=== PATIENT | female | born 1940 | race African-American/Black ===

== ENCOUNTER 2019-01-05 17:53 | Inpatient (IN) ==
[2019-01-05] MEDS ORDERED: SODIUM CHLORIDE 0.9% 500 ML IV STA (18:26)
[2019-01-05] MEDS ORDERED: PANTOPRAZOLE 40 MG VIAL IV STA (18:26)
[2019-01-05] MEDS ORDERED: ONDANSETRON 4 MG/2 ML VIAL IV STA (18:26)
[2019-01-05 18:49] LABS: Basophils # 0.1 10*3/uL (0.0-0.2); Basophils % 0.6 % (0.0-0.8); Hematocrit 39.1 VOL% (35.7-47.0); Immature Granulocytes % 0.6 %; Immature Granulocytes Absolute 0.08 #; Lymphocytes # 0.4 10*3/uL (1.4-4.0); Lymphocytes % 3.1 % (21.3-54.2); Mean Corpuscular HGB Conc 33.2 GM/DL (32-36); Mean Corpuscular Volume 84.3 FL (87-102); Mean Platelet Volume 10.6 FL (9.6-12.0); Neutrophils % 83.7 % (38.7-73.9); Platelet Count 281 T/CUMM (130-400); Red Blood Count 4.64 MC/CUMM (3.8-5.5); Red Cell Distribution Width 14.4 % (9.3-17.3); White Blood Count 13.8 T/CUMM (4-12)
[2019-01-05 19:08] LABS: Band Neutrophils 7 % (0-10); Lymphocytes 2 % (20-55); Segmented Neutrophils 80 % (50-85); Total Cells Counted 100
[2019-01-05 19:09] LABS: Apearance,Urine CLEAR (Clear); Bilirubin,Urine Negative (Negative); Blood, Urine Negative (Negative); Glucose,Urine (UA) >=500 mg/dL (Negative); Granular Casts,Urine 1 /LPF (0-1); Hyaline Casts,Urine 6 /LPF (0-3); Ketones,Urine 5 mg/dL (Negative); Mucus,Urine Occasional /LPF (Occasional); Nitrite,Urine Negative (Negative); Protein,Urine >=500 MG/DL; RBC,Urine 3 /HPF (0-4); Squamous Epithelial Cell,Urine Occasional /HPF (0-10); Urine Color Yellow (Yellow); Urine Specific Gravity 1.024 (1.001-1.035); Urine Urobilinogen < 2.0 EU/DL (0.2-1.0); WBC,Urine 1 /HPF (0-6)
[2019-01-05 19:09] LABS: Hypochromasia Slight; Platelet Estimate Adequate; Polychromasia Slight
[2019-01-05 19:11] LABS: Alanine Aminotransferase 19 U/L (13-56); Albumin 3.2 G/DL (3.4-5.0); Alkaline Phosphatase 86 U/L (45-117); Amylase 74 U/L (25-115); Aspartate Amino Transferase 49 U/L (0-37); Blood Urea Nitrogen 28 MG/DL (7-18); Calcium 8.8 MG/DL (8.5-10.1); Estimated Glom Filtration Rate 39 ML/MIN; Glucose 267 MG/DL (74-106); Osmolality,Calculated 278.5 MOS/KG (273-304); Total Protein 8.6 G/DL (6.4-8.3)
[2019-01-05] MEDS ORDERED: SODIUM CHLORIDE 0.9% 1,000 ML IV STA (19:32)
[2019-01-05] MEDS ORDERED: PROMETHAZINE 25 MG/1 ML VIAL IM STA (20:47)
[2019-01-05] MEDS ORDERED: LORazepam 2 MG/1 ML VIAL IV ONE (20:53)
[2019-01-05 20:54] LABS: INR 1.2; PT Patient Result 12.7 SECS (9.6-12.2); Partial Thromboplastin Time < 21.0 SECS (20.8-36.0)
[2019-01-05] MEDS ORDERED: PIPERACILLIN/TAZOBACTAM 3,375 MG in SODIUM CHLORIDE 0.9% 100 ML IV SCH (21:00)
[2019-01-05] MEDS ORDERED: risperiDONE 1 MG TABLET PO SCH (21:57)
[2019-01-05] MEDS ORDERED: ONDANSETRON 4 MG TABLET PO PRN ×2 (21:57→23:22)
[2019-01-05] MEDS ORDERED: metFORMIN 500 MG TABLET PO SCH (21:57)
[2019-01-05] MEDS ORDERED: SODIUM CHLORIDE 0.9% 1,000 ML IV SCH (21:57)
[2019-01-05] MEDS ORDERED: ONDANSETRON 4 MG/2 ML VIAL IV PRN ×2 (21:57→23:22)
[2019-01-05] MEDS ORDERED: ROSUVASTATIN 10 MG TABLET PO SCH (21:57)
[2019-01-05] MEDS ORDERED: INSULIN GLARGINE 100 UNIT/ML SUBCUT SCH (21:57)
[2019-01-05] MEDS ORDERED: ACETAMINOPHEN 325 MG TABLET PO PRN ×2 (21:57→23:22)
[2019-01-05] MEDS ORDERED: MORPHINE 4 MG/1 ML VIAL IV PRN (21:57)
[2019-01-05] MEDS ORDERED: MELATONIN 3 MG TABLET PO SCH (21:57)
[2019-01-05] MEDS: SODIUM CHLORIDE 0.9% 1,000 ML IV SCH (22:40)
[2019-01-05] MEDS: INSULIN LISPRO 100 UNIT/ML SUBCUT SCH (23:55)
[2019-01-06] MEDS ORDERED: LACTATED RINGERS 1,000 ML IV ONE (00:09)
[2019-01-06 03:29] LABS: Basophils # 0.1 10*3/uL (0.0-0.2); Basophils % 0.6 % (0.0-0.8); Eosinophils # 0.1 10*3/uL (0.0-0.87); Eosinophils % 0.4 % (0.00-10.9); Hemoglobin 11.9 GM/DL (12.0-16.0); Immature Granulocytes % 0.4 %; Immature Granulocytes Absolute 0.05 #; Lymphocytes # 0.8 10*3/uL (1.4-4.0); Lymphocytes % 6.4 % (21.3-54.2); Mean Corpuscular HGB Conc 33.1 GM/DL (32-36); Mean Corpuscular Volume 83.5 FL (87-102); Mean Platelet Volume 10.5 FL (9.6-12.0); Monocytes % 13.2 % (1.7-12.7); Platelet Count 273 T/CUMM (130-400); Red Blood Count 4.31 MC/CUMM (3.8-5.5); Red Cell Distribution Width 14.2 % (9.3-17.3); White Blood Count 11.8 T/CUMM (4-12)
[2019-01-06 03:39] LABS: Albumin 2.8 G/DL (3.4-5.0); Bilirubin,Total 0.4 MG/DL (0.2-1.0); Calcium 8.7 MG/DL (8.5-10.1); Osmolality,Calculated 290.3 MOS/KG (273-304); Total Protein 7.4 G/DL (6.4-8.3)
[2019-01-06] MEDS: PIPERACILLIN/TAZOBACTAM 3,375 MG in SODIUM CHLORIDE 0.9% 100 ML IV SCH ×3 (05:05→21:22)
[2019-01-06 06:11] LABS: Band Neutrophils 55 % (0-10); Lymphocytes 3 % (20-55); Segmented Neutrophils 25 % (50-85); Total Cells Counted 100
[2019-01-06 06:12] LABS: Platelet Estimate Normal
[2019-01-06 06:14] LABS: Anisocytosis 1+; Macrocytosis Slight; Poikilocytosis Slight
[2019-01-06 06:17] LABS: Eosinophils 1 % (0-10); Metamyelocytes 1 %
[2019-01-06] MEDS: INSULIN LISPRO 100 UNIT/ML SUBCUT SCH ×2 (08:01→15:35)
[2019-01-06] MEDS: metFORMIN 500 MG TABLET PO SCH ×2 (08:01→16:22)
[2019-01-06] MEDS: PANTOPRAZOLE 40 MG VIAL IV SCH (08:18)
[2019-01-06] MEDS: SODIUM CHLORIDE 0.9% 1,000 ML IV SCH (08:19)
[2019-01-06] MEDS ORDERED: PANTOPRAZOLE 40 MG VIAL IV SCH (09:00)
[2019-01-06] MEDS: ZIPRASIDONE 20 MG/1 ML VIAL IM PRN (15:28)
[2019-01-06] MEDS: risperiDONE 1 MG TABLET PO SCH (21:22)
[2019-01-06] MEDS: INSULIN GLARGINE 100 UNIT/ML SUBCUT SCH (21:22)
[2019-01-06] MEDS: ROSUVASTATIN 10 MG TABLET PO SCH (21:22)
[2019-01-06] MEDS: MELATONIN 3 MG TABLET PO SCH (21:22)
[2019-01-07] MEDS: SODIUM CHLORIDE 0.9% 1,000 ML IV SCH ×5 (00:54→21:32)
[2019-01-07 04:36] LABS: Basophils # 0.1 10*3/uL (0.0-0.2); Basophils % 0.5 % (0.0-0.8); Eosinophils # 0.4 10*3/uL (0.0-0.87); Eosinophils % 3.9 % (0.00-10.9); Hematocrit 39.9 VOL% (35.7-47.0); Hemoglobin 12.9 GM/DL (12.0-16.0); Immature Granulocytes % 0.5 %; Immature Granulocytes Absolute 0.05 #; Lymphocytes # 0.8 10*3/uL (1.4-4.0); Lymphocytes % 7.8 % (21.3-54.2); Mean Corpuscular HGB Conc 32.3 GM/DL (32-36); Mean Corpuscular Volume 85.1 FL (87-102); Mean Platelet Volume 10.8 FL (9.6-12.0); Monocytes % 18.5 % (1.7-12.7); Neutrophils % 68.8 % (38.7-73.9); Platelet Count 315 T/CUMM (130-400); Red Blood Count 4.69 MC/CUMM (3.8-5.5); Red Cell Distribution Width 14.6 % (9.3-17.3); White Blood Count 10.2 T/CUMM (4-12)
[2019-01-07 05:01] LABS: Band Neutrophils 4 % (0-10); Eosinophils 3 % (0-10); Hypochromasia 1+; Lymphocytes 11 % (20-55); Macrocytosis Slight; Platelet Estimate Adequate; Segmented Neutrophils 60 % (50-85); Total Cells Counted 100
[2019-01-07 05:11] LABS: Calcium 9.3 MG/DL (8.5-10.1); Osmolality,Calculated 305.4 MOS/KG (273-304)
[2019-01-07] MEDS: PIPERACILLIN/TAZOBACTAM 3,375 MG in SODIUM CHLORIDE 0.9% 100 ML IV SCH ×3 (05:50→21:31)
[2019-01-07] MEDS: ZIPRASIDONE 20 MG/1 ML VIAL IM PRN ×2 (05:57→13:19)
[2019-01-07] MEDS ORDERED: LACTATED RINGERS 1,000 ML IV ONE (06:35)
[2019-01-07] MEDS: INSULIN LISPRO 100 UNIT/ML SUBCUT SCH ×2 (08:58→16:57)
[2019-01-07] MEDS: metFORMIN 500 MG TABLET PO SCH ×2 (08:58→16:12)
[2019-01-07] MEDS: PANTOPRAZOLE 40 MG VIAL IV SCH (08:58)
[2019-01-07] MEDS: INSULIN GLARGINE 100 UNIT/ML SUBCUT SCH (21:30)
[2019-01-07] MEDS: ROSUVASTATIN 10 MG TABLET PO SCH (21:33)
[2019-01-07] MEDS: MELATONIN 3 MG TABLET PO SCH (21:33)
[2019-01-07] MEDS: risperiDONE 1 MG TABLET PO SCH (21:33)
[2019-01-07] MEDS: MORPHINE 4 MG/1 ML VIAL IV PRN (21:41)
[2019-01-08 05:07] LABS: Basophils # 0.1 10*3/uL (0.0-0.2); Basophils % 0.6 % (0.0-0.8); Eosinophils # 0.1 10*3/uL (0.0-0.87); Eosinophils % 0.5 % (0.00-10.9); Hematocrit 40.4 VOL% (35.7-47.0); Hemoglobin 12.8 GM/DL (12.0-16.0); Immature Granulocytes % 0.8 %; Immature Granulocytes Absolute 0.15 #; Lymphocytes # 0.4 10*3/uL (1.4-4.0); Lymphocytes % 2.4 % (21.3-54.2); Mean Corpuscular HGB Conc 31.7 GM/DL (32-36); Mean Corpuscular Volume 87.3 FL (87-102); Mean Platelet Volume 10.1 FL (9.6-12.0); Monocytes % 8.7 % (1.7-12.7); Platelet Count 293 T/CUMM (130-400); Red Blood Count 4.63 MC/CUMM (3.8-5.5); Red Cell Distribution Width 14.4 % (9.3-17.3)
[2019-01-08 05:30] LABS: Band Neutrophils 2 % (0-10); Hypochromasia 1+; Lymphocytes 4 % (20-55); Ovalocytes Slight; Platelet Estimate Adequate; Segmented Neutrophils 83 % (50-85); Total Cells Counted 100
[2019-01-08 05:31] LABS: Macrocytosis Slight
[2019-01-08] MEDS: PIPERACILLIN/TAZOBACTAM 3,375 MG in SODIUM CHLORIDE 0.9% 100 ML IV SCH ×3 (05:32→21:26)
[2019-01-08] MEDS: SODIUM CHLORIDE 0.9% 1,000 ML IV SCH (05:32)
[2019-01-08 05:39] LABS: Calcium 8.4 MG/DL (8.5-10.1); Osmolality,Calculated 298.3 MOS/KG (273-304)
[2019-01-08] MEDS: metFORMIN 500 MG TABLET PO SCH (08:01)
[2019-01-08] MEDS: PANTOPRAZOLE 40 MG VIAL IV SCH (09:04)
[2019-01-08] MEDS ORDERED: GLUCAGON 1 MG VIAL ONE (09:16)
[2019-01-08] MEDS: GLUCAGON 1 MG VIAL IM PRN ×2 (09:22→12:37)
[2019-01-08] MEDS: INSULIN LISPRO 100 UNIT/ML SUBCUT SCH (09:26)
[2019-01-08] MEDS ORDERED: DEXTROSE 10% 25 GM/250 ML BAG IV PRN (12:23)
[2019-01-08] MEDS: DEXTROSE 5% NACL 0.45% 1,000 ML IV SCH ×2 (13:30→21:30)
[2019-01-08 13:51] LABS: Apearance,Urine Slightly Hazy (Clear); Bilirubin,Urine Negative (Negative); Blood, Urine Small mg/dL (Negative); Glucose,Urine (UA) Negative (Negative); Hyaline Casts,Urine 1 /LPF (0-3); Ketones,Urine Negative (Negative); Nitrite,Urine Negative (Negative); Protein,Urine 100 MG/DL; Urine Color Yellow (Yellow); Urine Specific Gravity 1.024 (1.001-1.035); Urine Urobilinogen < 2.0 EU/DL (0.2-1.0); WBC,Urine 1 /HPF (0-6)
[2019-01-08] MEDS: MORPHINE 4 MG/1 ML VIAL IV PRN ×2 (17:59→21:25)
[2019-01-08] MEDS: risperiDONE 1 MG TABLET PO SCH (21:36)
[2019-01-08] MEDS: MELATONIN 3 MG TABLET PO SCH (21:36)
[2019-01-08] MEDS: ROSUVASTATIN 10 MG TABLET PO SCH (21:36)
[2019-01-09] MEDS: DEXTROSE 5% NACL 0.45% 1,000 ML IV SCH (05:34)
[2019-01-09] MEDS: PIPERACILLIN/TAZOBACTAM 3,375 MG in SODIUM CHLORIDE 0.9% 100 ML IV SCH ×3 (05:34→20:57)
[2019-01-09 06:33] LABS: Basophils # 0.1 10*3/uL (0.0-0.2); Basophils % 0.5 % (0.0-0.8); Eosinophils # 0.2 10*3/uL (0.0-0.87); Eosinophils % 1.1 % (0.00-10.9); Hematocrit 38.5 VOL% (35.7-47.0); Hemoglobin 12.1 GM/DL (12.0-16.0); Immature Granulocytes % 2.1 %; Immature Granulocytes Absolute 0.44 #; Lymphocytes # 1.3 10*3/uL (1.4-4.0); Lymphocytes % 5.9 % (21.3-54.2); Mean Corpuscular HGB Conc 31.4 GM/DL (32-36); Mean Corpuscular Volume 89.1 FL (87-102); Monocytes % 8.3 % (1.7-12.7); Neutrophils % 82.1 % (38.7-73.9); Platelet Count 265 T/CUMM (130-400); Red Blood Count 4.32 MC/CUMM (3.8-5.5); Red Cell Distribution Width 14.3 % (9.3-17.3); White Blood Count 21.4 T/CUMM (4-12)
[2019-01-09 06:50] LABS: Calcium 7.7 MG/DL (8.5-10.1); Osmolality,Calculated 301.6 MOS/KG (273-304)
[2019-01-09 06:55] LABS: Atypical Lymphocytes Few; Eosinophils 1 % (0-10); Hypochromasia 1+; Lymphocytes 9 % (20-55); Segmented Neutrophils 78 % (50-85); Total Cells Counted 100
[2019-01-09 06:56] LABS: Microcytosis Slight; Ovalocytes Slight; Platelet Estimate Normal
[2019-01-09] MEDS: LACTATED RINGERS 1,000 ML IV SCH (10:28)
[2019-01-09] MEDS: PANTOPRAZOLE 40 MG VIAL IV SCH (10:29)
[2019-01-09] MEDS: ZIPRASIDONE 20 MG/1 ML VIAL IM PRN (10:51)
[2019-01-09 13:09] LABS: Apearance,Urine Slightly Hazy (Clear); Bilirubin,Urine Negative (Negative); Blood, Urine Moderate mg/dL (Negative); Calcium Oxalate Crystals,Urine Occasional /HPF (Few); Glucose,Urine (UA) >=500 mg/dL (Negative); Ketones,Urine Negative (Negative); Mucus,Urine Occasional /LPF (Occasional); Nitrite,Urine Negative (Negative); Protein,Urine 100 MG/DL; RBC,Urine 24 /HPF (0-4); Squamous Epithelial Cell,Urine Occasional /HPF (0-10); Urine Color Yellow (Yellow); Urine Specific Gravity 1.028 (1.001-1.035); Urine Urobilinogen < 2.0 EU/DL (0.2-1.0); WBC,Urine 2 /HPF (0-6)
[2019-01-09] MEDS: risperiDONE 1 MG TABLET PO SCH (21:01)
[2019-01-09] MEDS: ROSUVASTATIN 10 MG TABLET PO SCH (21:01)
[2019-01-09] MEDS: MELATONIN 3 MG TABLET PO SCH (21:01)
[2019-01-10] MEDS: LACTATED RINGERS 1,000 ML IV SCH ×2 (00:50→12:07)
[2019-01-10] MEDS: PIPERACILLIN/TAZOBACTAM 3,375 MG in SODIUM CHLORIDE 0.9% 100 ML IV SCH (04:58)
[2019-01-10 05:51] LABS: Basophils # 0.1 10*3/uL (0.0-0.2); Basophils % 0.6 % (0.0-0.8); Eosinophils # 0.2 10*3/uL (0.0-0.87); Eosinophils % 1.3 % (0.00-10.9); Hematocrit 37.2 VOL% (35.7-47.0); Hemoglobin 11.7 GM/DL (12.0-16.0); Immature Granulocytes % 4.5 %; Immature Granulocytes Absolute 0.72 #; Lymphocytes # 1.4 10*3/uL (1.4-4.0); Mean Corpuscular HGB Conc 31.5 GM/DL (32-36); Mean Corpuscular Volume 87.5 FL (87-102); Mean Platelet Volume 10.8 FL (9.6-12.0); Monocytes % 10.1 % (1.7-12.7); Neutrophils % 74.5 % (38.7-73.9); Platelet Count 226 T/CUMM (130-400); Red Blood Count 4.25 MC/CUMM (3.8-5.5)
[2019-01-10 06:20] LABS: Calcium 8.3 MG/DL (8.5-10.1); Osmolality,Calculated 298.3 MOS/KG (273-304)
[2019-01-10 09:36] LABS: Eosinophils 1 % (0-10); Lymphocytes 10 % (20-55); Metamyelocytes 1 %; Myelocytes 5 %; Segmented Neutrophils 79 % (50-85); Total Cells Counted 100
[2019-01-10 09:37] LABS: Platelet Estimate Normal; Polychromasia Slight
[2019-01-10] MEDS: PANTOPRAZOLE 40 MG VIAL IV SCH (09:56)
[2019-01-10 11:57] VITALS: BP 164/66
== END 2019-01-10 12:47 | disposition home or self-care (01) | DRG 389 ==
LOC: EDBD → EDUNIT# → N.ED 17:53 → N.EDINP 20:22 → N.3E 20:46
PROVIDERS: ADMIT Surgery; ATTEND Surgery

== ENCOUNTER 2019-02-06 16:23 | Inpatient (IN) ==
[2019-02-06 17:39] LABS: Basophils % 0.3 % (0.0-0.8); Eosinophils % 0.1 % (0.00-10.9); Hematocrit 35.4 VOL% (35.7-47.0); Hemoglobin 11.7 GM/DL (12.0-16.0); Immature Granulocytes % 0.7 %; Lymphocytes # 1.4 10*3/uL (1.4-4.0); Lymphocytes % 9.4 % (21.3-54.2); Mean Corpuscular HGB Conc 33.1 GM/DL (32-36); Mean Corpuscular Volume 82.9 FL (87-102); Mean Platelet Volume 9.2 FL (9.6-12.0); Monocytes % 16.6 % (1.7-12.7); Neutrophils % 72.9 % (38.7-73.9); Platelet Count 310 T/CUMM (130-400); Red Blood Count 4.27 MC/CUMM (3.8-5.5); Red Cell Distribution Width 13.5 % (9.3-17.3); White Blood Count 14.8 T/CUMM (4-12)
[2019-02-06] MEDS ORDERED: cefTRIAXone 1,000 MG in SODIUM CHLORIDE 0.9% 100 ML IV STA (17:52)
[2019-02-06 18:05] LABS: Alanine Aminotransferase 12 U/L (13-56); Alkaline Phosphatase 86 U/L (45-117); Aspartate Amino Transferase 24 U/L (0-37); Bilirubin,Total < 0.39 MG/DL (0.2-1.0); Blood Urea Nitrogen 11 MG/DL (7-18); Calcium 8.9 MG/DL (8.5-10.1); Estimated Glom Filtration Rate 80 ML/MIN; Glucose 176 MG/DL (74-106); Total Protein 7.8 G/DL (6.4-8.3)
[2019-02-06 18:37] LABS: Lymphocytes 15 % (20-55); Segmented Neutrophils 70 % (50-85); Total Cells Counted 100
[2019-02-06 18:38] LABS: Hypochromasia 2+; Platelet Estimate Normal; Polychromasia Slight
[2019-02-06 18:39] LABS: Anisocytosis 1+; Burr Cells Few; Microcytosis 1+; Ovalocytes Few; Poikilocytosis 2+
[2019-02-06 18:48] LABS: Apearance,Urine CLOUDY (Clear); Bacteria,Urine Occasional /HPF (Few); Bilirubin,Urine Negative (Negative); Blood, Urine Negative (Negative); Glucose,Urine (UA) 50 mg/dL (Negative); Ketones,Urine 5 mg/dL (Negative); Mucus,Urine Few /LPF (Occasional); Nitrite,Urine Negative (Negative); Protein,Urine 100 MG/DL; RBC,Urine 3 /HPF (0-4); Squamous Epithelial Cell,Urine Many /HPF (0-10); Urine Color Yellow (Yellow); Urine Specific Gravity 1.019 (1.001-1.035); Urine Urobilinogen < 2.0 EU/DL (0.2-1.0); WBC,Urine 3 /HPF (0-6)
[2019-02-06] MEDS ORDERED: ACETAMINOPHEN 325 MG TABLET PO PRN (21:41)
[2019-02-06] MEDS ORDERED: DOCUSATE SODIUM 100 MG CAPSULE PO PRN (21:41)
[2019-02-06] MEDS ORDERED: MAGNESIUM SULF RIDER 2 GM in PREMIX 1 EACH IV PRN (21:41)
[2019-02-06] MEDS ORDERED: SODIUM CHLORIDE 0.9% 1,000 ML IV SCH (21:41)
[2019-02-06] MEDS ORDERED: ONDANSETRON 4 MG/2 ML VIAL IV PRN (21:41)
[2019-02-06] MEDS ORDERED: GLUCAGON 1 MG VIAL IM PRN (21:41)
[2019-02-06] MEDS ORDERED: MAGNESIUM SULF RIDER 4 GM in PREMIX 1 EACH IV PRN (21:41)
[2019-02-06] MEDS ORDERED: INSULIN GLARGINE 100 UNIT/ML SUBCUT SCH (21:41)
[2019-02-06] MEDS ORDERED: DEXTROSE 50% 25 GM/50 ML VIAL IV PRN (21:41)
[2019-02-06] MEDS: risperiDONE 1 MG TABLET PO SCH (22:27)
[2019-02-06] MEDS: ENOXAPARIN 40 MG/0.4 ML SYRINGE SUBCUT SCH (22:27)
[2019-02-06] MEDS: ROSUVASTATIN 10 MG TABLET PO SCH (22:27)
[2019-02-06] MEDS: INSULIN LISPRO 100 UNIT/ML SUBCUT SCH (22:27)
[2019-02-06] MEDS: FLUCONAZOLE INJ 400 MG in PREMIX 1 EACH IV SCH (22:49)
[2019-02-07 05:58] LABS: Basophils # 0.1 10*3/uL (0.0-0.2); Basophils % 0.4 % (0.0-0.8); Eosinophils % 0.2 % (0.00-10.9); Hematocrit 32.9 VOL% (35.7-47.0); Hemoglobin 10.6 GM/DL (12.0-16.0); Immature Granulocytes % 0.4 %; Immature Granulocytes Absolute 0.05 #; Lymphocytes # 1.1 10*3/uL (1.4-4.0); Lymphocytes % 8.7 % (21.3-54.2); Mean Corpuscular HGB Conc 32.2 GM/DL (32-36); Mean Corpuscular Volume 84.8 FL (87-102); Mean Platelet Volume 9.7 FL (9.6-12.0); Monocytes % 16.1 % (1.7-12.7); Neutrophils % 74.2 % (38.7-73.9); Platelet Count 303 T/CUMM (130-400); Red Blood Count 3.88 MC/CUMM (3.8-5.5); Red Cell Distribution Width 13.6 % (9.3-17.3); White Blood Count 12.5 T/CUMM (4-12)
[2019-02-07 06:33] LABS: % Iron Saturation 11.5 % (18-50); Ferritin 210.7 ng/ml (8-252); Osmolality,Calculated 272.8 MOS/KG (273-304)
[2019-02-07 07:04] LABS: Folate 11.6 NG/ML (5.4-24.0); Vitamin B12 464 PG/ML (211-911)
[2019-02-07] MEDS ORDERED: INSULIN LISPRO 100 UNIT/ML SUBCUT SCH (07:30)
[2019-02-07] MEDS: INSULIN LISPRO 100 UNIT/ML SUBCUT SCH ×4 (08:31→22:09)
[2019-02-07 09:30] LABS: Sedimentation Rate-Westergren 94 MM/HR (0-30)
[2019-02-07 11:14] LABS: Band Neutrophils 1 % (0-10); Hypochromasia 1+; Lymphocytes 8 % (20-55); Microcytosis 1+; Platelet Estimate Normal; Polychromasia Slight; Segmented Neutrophils 84 % (50-85); Total Cells Counted 100
[2019-02-07] MEDS: cefTRIAXone 1,000 MG in SYRINGE 1 EACH IV SCH (18:06)
[2019-02-07] MEDS ORDERED: DEXTROSE 10% 250 ML IV ONE (20:40)
[2019-02-07] MEDS: ROSUVASTATIN 10 MG TABLET PO SCH (22:06)
[2019-02-07] MEDS: risperiDONE 1 MG TABLET PO SCH (22:06)
[2019-02-07] MEDS: INSULIN GLARGINE 100 UNIT/ML SUBCUT SCH (22:09)
[2019-02-07] MEDS: ENOXAPARIN 40 MG/0.4 ML SYRINGE SUBCUT SCH (22:10)
[2019-02-07] MEDS: FLUCONAZOLE INJ 400 MG in PREMIX 1 EACH IV SCH (22:13)
[2019-02-08 04:00] LABS: Basophils % 0.5 % (0.0-0.8); Eosinophils % 0.5 % (0.00-10.9); Hematocrit 29.1 VOL% (35.7-47.0); Hemoglobin 9.6 GM/DL (12.0-16.0); Immature Granulocytes % 0.5 %; Immature Granulocytes Absolute 0.04 #; Lymphocytes # 1.1 10*3/uL (1.4-4.0); Lymphocytes % 11.9 % (21.3-54.2); Mean Corpuscular Volume 82.4 FL (87-102); Mean Platelet Volume 9.6 FL (9.6-12.0); Monocytes % 19.4 % (1.7-12.7); Neutrophils % 67.2 % (38.7-73.9); Platelet Count 269 T/CUMM (130-400); Red Blood Count 3.53 MC/CUMM (3.8-5.5); Red Cell Distribution Width 13.2 % (9.3-17.3); White Blood Count 8.9 T/CUMM (4-12)
[2019-02-08 04:29] LABS: Calcium 8.4 MG/DL (8.5-10.1)
[2019-02-08 05:06] LABS: Lymphocytes 14 % (20-55); Segmented Neutrophils 76 % (50-85); Total Cells Counted 100
[2019-02-08 05:07] LABS: Anisocytosis 1+; Polychromasia Slight
[2019-02-08 05:08] LABS: Platelet Estimate Adequate
[2019-02-08] MEDS: INSULIN LISPRO 100 UNIT/ML SUBCUT SCH ×4 (07:39→20:56)
[2019-02-08] MEDS: cefTRIAXone 1,000 MG in SYRINGE 1 EACH IV SCH (18:46)
[2019-02-08] MEDS: ROSUVASTATIN 10 MG TABLET PO SCH (20:42)
[2019-02-08] MEDS: ENOXAPARIN 40 MG/0.4 ML SYRINGE SUBCUT SCH (20:42)
[2019-02-08] MEDS: risperiDONE 1 MG TABLET PO SCH (20:42)
[2019-02-08] MEDS: INSULIN GLARGINE 100 UNIT/ML SUBCUT SCH (20:54)
[2019-02-08] MEDS: FLUCONAZOLE INJ 400 MG in PREMIX 1 EACH IV SCH (21:06)
[2019-02-09] MEDS: INSULIN LISPRO 100 UNIT/ML SUBCUT SCH ×2 (08:30→12:58)
[2019-02-09 09:29] LABS: Hemoglobin A1 (Alkaline) 97.4 % (96.5-98.5); Hemoglobin A2 (Alkaline) 2.6 % (1.5-3.5)
[2019-02-09 11:41] VITALS: BP 160/73
[2019-02-09] MEDS: cefTRIAXone 1,000 MG in SYRINGE 1 EACH IV SCH (13:03)
== END 2019-02-09 16:15 | DRG 689 ==
LOC: EDBD → EDUNIT# → N.ED 16:23 → SUATTDRO 20:24 → N.EDINP 20:24 → N.5E 20:59
PROVIDERS: ADMIT Internal Medicine; ATTEND Internal Medicine

== ENCOUNTER 2019-02-10 18:22 | Inpatient (IN) ==
[2019-02-10] MEDS ORDERED: SODIUM CHLORIDE 0.9% 1,000 ML IV STA ×2 (18:48→20:34)
[2019-02-10] MEDS ORDERED: INSULIN REGULAR 100 UNIT/ML IV ONE (18:48)
[2019-02-10 19:36] LABS: Basophils # 0.1 10*3/uL (0.0-0.2); Basophils % 0.3 % (0.0-0.8); Eosinophils % 0.1 % (0.00-10.9); Hematocrit 33.2 VOL% (35.7-47.0); Hemoglobin 10.9 GM/DL (12.0-16.0); Immature Granulocytes % 0.7 %; Immature Granulocytes Absolute 0.11 #; Lymphocytes % 6.4 % (21.3-54.2); Mean Corpuscular HGB Conc 32.8 GM/DL (32-36); Mean Corpuscular Volume 82.6 FL (87-102); Mean Platelet Volume 9.4 FL (9.6-12.0); Monocytes % 14.8 % (1.7-12.7); Neutrophils % 77.7 % (38.7-73.9); Platelet Count 376 T/CUMM (130-400); Red Blood Count 4.02 MC/CUMM (3.8-5.5); Red Cell Distribution Width 13.2 % (9.3-17.3)
[2019-02-10 19:44] LABS: White Blood Count 15.6 T/CUMM (4-12)
[2019-02-10 19:56] LABS: Alanine Aminotransferase 13 U/L (13-56); Albumin 1.7 G/DL (3.4-5.0); Alkaline Phosphatase 88 U/L (45-117); Aspartate Amino Transferase 20 U/L (0-37); Bilirubin,Total < 0.39 MG/DL (0.2-1.0); Blood Urea Nitrogen 15 MG/DL (7-18); Calcium 8.8 MG/DL (8.5-10.1); Estimated Glom Filtration Rate 60 ML/MIN; Glucose 415 MG/DL (74-106); Osmolality,Calculated 284.4 MOS/KG (273-304); Total Protein 7.9 G/DL (6.4-8.3); Troponin I < 0.015 NG/ML (0.00-0.045)
[2019-02-10 20:02] LABS: INR 1.1; PT Patient Result 11.4 SECS (9.6-12.2); Partial Thromboplastin Time 28.2 SECS (20.8-36.0)
[2019-02-10 20:21] LABS: Apearance,Urine CLEAR (Clear); Bilirubin,Urine Negative (Negative); Blood, Urine Negative (Negative); Glucose,Urine (UA) >=500 mg/dL (Negative); Ketones,Urine 5 mg/dL (Negative); Mucus,Urine Occasional /LPF (Occasional); Nitrite,Urine Negative (Negative); Protein,Urine 30 MG/DL; RBC,Urine 13 /HPF (0-4); Squamous Epithelial Cell,Urine Occasional /HPF (0-10); Urine Color Yellow (Yellow); Urine Specific Gravity 1.015 (1.001-1.035); Urine Urobilinogen < 2.0 EU/DL (0.2-1.0); WBC,Urine 2 /HPF (0-6)
[2019-02-10] MEDS ORDERED: VANCOMYCIN INJ 1,000 MG in SODIUM CHLORIDE 0.9% 250 ML IV STA (20:34)
[2019-02-10] MEDS ORDERED: diphenhydrAMINE CAP 25 MG CAPSULE PO PRN (21:28)
[2019-02-10] MEDS ORDERED: ACETAMINOPHEN 325 MG TABLET PO PRN (21:28)
[2019-02-10] MEDS ORDERED: ONDANSETRON 4 MG/2 ML VIAL IV PRN (21:28)
[2019-02-10] MEDS ORDERED: guaiFENesin/DM ER 600-30 MG TABLET PO PRN (21:28)
[2019-02-10] MEDS ORDERED: NICOTINE 21 MG/24 HR PATCH TRANSDERM PRN (21:28)
[2019-02-10] MEDS ORDERED: LACTULOSE 20 GM/30 ML UDCUP PO PRN (21:28)
[2019-02-10] MEDS ORDERED: DEXTROSE 50% 25 GM/50 ML VIAL IV PRN (22:24)
[2019-02-10] MEDS ORDERED: GLUCAGON 1 MG VIAL IM PRN (22:24)
[2019-02-11] MEDS: INSULIN GLARGINE 100 UNIT/ML SUBCUT SCH ×2 (00:59→21:07)
[2019-02-11 01:29] LABS: Basophils # 0.1 10*3/uL (0.0-0.2); Basophils % 0.3 % (0.0-0.8); Eosinophils % 0.1 % (0.00-10.9); Hematocrit 31.1 VOL% (35.7-47.0); Hemoglobin 9.8 GM/DL (12.0-16.0); Immature Granulocytes % 0.8 %; Immature Granulocytes Absolute 0.12 #; Lymphocytes # 1.1 10*3/uL (1.4-4.0); Lymphocytes % 7.3 % (21.3-54.2); Mean Corpuscular HGB Conc 31.5 GM/DL (32-36); Mean Corpuscular Volume 85.9 FL (87-102); Mean Platelet Volume 9.4 FL (9.6-12.0); Monocytes % 15.3 % (1.7-12.7); Neutrophils % 76.2 % (38.7-73.9); Platelet Count 333 T/CUMM (130-400); Red Blood Count 3.62 MC/CUMM (3.8-5.5); Red Cell Distribution Width 13.2 % (9.3-17.3); White Blood Count 14.9 T/CUMM (4-12)
[2019-02-11] MEDS: PIPERACILLIN/TAZOBACTAM 3,375 MG in SODIUM CHLORIDE 0.9% 100 ML IV SCH ×4 (01:38→23:35)
[2019-02-11] MEDS: SODIUM CHLORIDE 0.9% 1,000 ML IV SCH ×3 (01:38→13:46)
[2019-02-11 01:53] LABS: Alanine Aminotransferase 11 U/L (13-56); Albumin 1.5 G/DL (3.4-5.0); Alkaline Phosphatase 79 U/L (45-117); Aspartate Amino Transferase 19 U/L (0-37); Bilirubin,Total < 0.39 MG/DL (0.2-1.0); Blood Urea Nitrogen 13 MG/DL (7-18); Calcium 8.5 MG/DL (8.5-10.1); Estimated Glom Filtration Rate 71 ML/MIN; Glucose 287 MG/DL (74-106); Osmolality,Calculated 282.8 MOS/KG (273-304); Total Protein 7.2 G/DL (6.4-8.3)
[2019-02-11] MEDS ORDERED: MAGNESIUM HYDROXIDE SUSP 30 ML UDCUP PO ONE (09:04)
[2019-02-11] MEDS: INSULIN REGULAR 100 UNIT/ML SUBCUT SCH ×4 (10:38→21:40)
[2019-02-11] MEDS: VANCOMYCIN INJ 1,250 MG in SODIUM CHLORIDE 0.9% 250 ML IV SCH ×2 (10:39→21:55)
[2019-02-11] MEDS: POLYETHYLENE GLYCOL POWDER 17 GM PACK PO SCH (13:43)
[2019-02-11] MEDS: risperiDONE 1 MG TABLET PO SCH (21:08)
[2019-02-11] MEDS: MENTHOL/ZINC OXIDE OINT 71 GM JAR TOP SCH (21:08)
[2019-02-11] MEDS: MELATONIN 3 MG TABLET PO SCH (21:08)
[2019-02-11] MEDS: ROSUVASTATIN 10 MG TABLET PO SCH (21:08)
[2019-02-12 04:43] LABS: Risk Ratio 2.06; VLDL CHOLESTEROL 11.8 MG/DL
[2019-02-12] MEDS ORDERED: MAGNESIUM HYDROXIDE SUSP 30 ML UDCUP PO ONE (07:06)
[2019-02-12] MEDS ORDERED: SODIUM PHOSPHATE ENEMA 133 ML BOTTLE RECTAL ONE (07:06)
[2019-02-12 07:46] LABS: Basophils # 0.1 10*3/uL (0.0-0.2); Basophils % 0.5 % (0.0-0.8); Eosinophils # 0.2 10*3/uL (0.0-0.87); Eosinophils % 1.5 % (0.00-10.9); Hematocrit 31.8 VOL% (35.7-47.0); Hemoglobin 10.2 GM/DL (12.0-16.0); Immature Granulocytes % 0.9 %; Immature Granulocytes Absolute 0.12 #; Lymphocytes # 1.3 10*3/uL (1.4-4.0); Lymphocytes % 9.5 % (21.3-54.2); Mean Corpuscular HGB Conc 32.1 GM/DL (32-36); Mean Corpuscular Volume 83.7 FL (87-102); Neutrophils % 74.6 % (38.7-73.9); Platelet Count 327 T/CUMM (130-400); Red Cell Distribution Width 13.2 % (9.3-17.3); White Blood Count 13.3 T/CUMM (4-12)
[2019-02-12 08:02] LABS: Alanine Aminotransferase 12 U/L (13-56); Albumin 1.4 G/DL (3.4-5.0); Alkaline Phosphatase 78 U/L (45-117); Aspartate Amino Transferase 20 U/L (0-37); Bilirubin,Total < 0.39 MG/DL (0.2-1.0); Blood Urea Nitrogen 9 MG/DL (7-18); Calcium 8.8 MG/DL (8.5-10.1); Estimated Glom Filtration Rate 81 ML/MIN; Glucose 171 MG/DL (74-106); Osmolality,Calculated 275.8 MOS/KG (273-304); Total Protein 7.1 G/DL (6.4-8.3)
[2019-02-12] MEDS: INSULIN REGULAR 100 UNIT/ML SUBCUT SCH ×4 (08:10→21:11)
[2019-02-12] MEDS: VANCOMYCIN INJ 1,250 MG in SODIUM CHLORIDE 0.9% 250 ML IV SCH (08:10)
[2019-02-12] MEDS: POLYETHYLENE GLYCOL POWDER 17 GM PACK PO SCH (08:11)
[2019-02-12] MEDS: MENTHOL/ZINC OXIDE OINT 71 GM JAR TOP SCH ×2 (08:12→21:12)
[2019-02-12] MEDS: SODIUM CHLORIDE 0.9% 1,000 ML IV SCH ×3 (08:13→17:14)
[2019-02-12 10:32] LABS: Apearance,Urine CLOUDY (Clear); Bacteria,Urine Occasional /HPF (Few); Bilirubin,Urine Negative (Negative); Blood, Urine Small mg/dL (Negative); Glucose,Urine (UA) 50 mg/dL (Negative); Ketones,Urine Negative (Negative); Mucus,Urine Occasional /LPF (Occasional); Nitrite,Urine Negative (Negative); Protein,Urine 30 MG/DL; RBC,Urine 7 /HPF (0-4); Squamous Epithelial Cell,Urine Occasional /HPF (0-10); Urine Color Yellow (Yellow); Urine Specific Gravity 1.021 (1.001-1.035); Urine Urobilinogen < 2.0 EU/DL (0.2-1.0); WBC,Urine 57 /HPF (0-6)
[2019-02-12] MEDS: PIPERACILLIN/TAZOBACTAM 3,375 MG in SODIUM CHLORIDE 0.9% 100 ML IV SCH ×2 (11:12→17:14)
[2019-02-12] MEDS: INSULIN GLARGINE 100 UNIT/ML SUBCUT SCH (21:11)
[2019-02-12] MEDS: risperiDONE 1 MG TABLET PO SCH (21:11)
[2019-02-12] MEDS: MELATONIN 3 MG TABLET PO SCH (21:11)
[2019-02-12] MEDS: ROSUVASTATIN 10 MG TABLET PO SCH (21:11)
[2019-02-13] MEDS: PIPERACILLIN/TAZOBACTAM 3,375 MG in SODIUM CHLORIDE 0.9% 100 ML IV SCH ×3 (02:55→20:34)
[2019-02-13] MEDS: SODIUM CHLORIDE 0.9% 1,000 ML IV SCH ×2 (03:00→19:18)
[2019-02-13 05:35] LABS: Basophils % 0.4 % (0.0-0.8); Eosinophils # 0.2 10*3/uL (0.0-0.87); Eosinophils % 1.8 % (0.00-10.9); Hematocrit 28.8 VOL% (35.7-47.0); Hemoglobin 9.3 GM/DL (12.0-16.0); Immature Granulocytes % 0.9 %; Immature Granulocytes Absolute 0.09 #; Lymphocytes # 0.9 10*3/uL (1.4-4.0); Lymphocytes % 8.6 % (21.3-54.2); Mean Corpuscular HGB Conc 32.3 GM/DL (32-36); Mean Corpuscular Volume 82.8 FL (87-102); Mean Platelet Volume 9.2 FL (9.6-12.0); Monocytes % 12.2 % (1.7-12.7); Neutrophils % 76.1 % (38.7-73.9); Platelet Count 387 T/CUMM (130-400); Red Blood Count 3.48 MC/CUMM (3.8-5.5); Red Cell Distribution Width 13.1 % (9.3-17.3); White Blood Count 10.2 T/CUMM (4-12)
[2019-02-13] MEDS ORDERED: VANCOMYCIN INJ 1,250 MG in SODIUM CHLORIDE 0.9% 250 ML IV SCH (06:00)
[2019-02-13 06:02] LABS: Albumin 1.4 G/DL (3.4-5.0); Bilirubin,Total 0.4 MG/DL (0.2-1.0); Calcium 8.6 MG/DL (8.5-10.1); Osmolality,Calculated 268.1 MOS/KG (273-304); Total Protein 6.7 G/DL (6.4-8.3)
[2019-02-13] MEDS: INSULIN REGULAR 100 UNIT/ML SUBCUT SCH ×4 (07:51→20:34)
[2019-02-13 08:11] LABS: Random Urine Protein (Bench) 126 MG/DL (<11.9); Total Protein (Chem) 6.9 G/DL (6.4-8.3)
[2019-02-13 08:13] LABS: Alpha 1 (SPE) Rel % 5.6 %; Alpha 2 (SPE) Rel % 24.9 %; Beta (SPE) Rel % 14.7 %; Gamma (SPE) Rel % 25.8 %
[2019-02-13 08:20] LABS: Alpha 1 (SPE) 0.4 G/DL (0.1-0.4); Alpha 2 (SPE) 1.7 G/DL (0.4-1.0); Gamma (SPE) 1.8 G/DL (0.7-1.7)
[2019-02-13] MEDS: POLYETHYLENE GLYCOL POWDER 17 GM PACK PO SCH (08:46)
[2019-02-13] MEDS: MENTHOL/ZINC OXIDE OINT 71 GM JAR TOP SCH ×2 (08:46→20:37)
[2019-02-13] MEDS: risperiDONE 1 MG TABLET PO SCH (20:34)
[2019-02-13] MEDS: ROSUVASTATIN 10 MG TABLET PO SCH (20:34)
[2019-02-13] MEDS: MELATONIN 3 MG TABLET PO SCH (20:34)
[2019-02-13] MEDS: INSULIN GLARGINE 100 UNIT/ML SUBCUT SCH (20:35)
[2019-02-14] MEDS: SODIUM CHLORIDE 0.9% 1,000 ML IV SCH (02:24)
[2019-02-14] MEDS: PIPERACILLIN/TAZOBACTAM 3,375 MG in SODIUM CHLORIDE 0.9% 100 ML IV SCH (02:46)
[2019-02-14 04:57] LABS: Basophils # 0.1 10*3/uL (0.0-0.2); Basophils % 0.6 % (0.0-0.8); Eosinophils # 0.2 10*3/uL (0.0-0.87); Eosinophils % 1.9 % (0.00-10.9); Hematocrit 29.3 VOL% (35.7-47.0); Hemoglobin 9.6 GM/DL (12.0-16.0); Immature Granulocytes Absolute 0.11 #; Lymphocytes # 0.9 10*3/uL (1.4-4.0); Lymphocytes % 8.1 % (21.3-54.2); Mean Corpuscular HGB Conc 32.8 GM/DL (32-36); Mean Corpuscular Volume 82.5 FL (87-102); Monocytes % 12.5 % (1.7-12.7); Neutrophils % 75.9 % (38.7-73.9); Platelet Count 436 T/CUMM (130-400); Red Blood Count 3.55 MC/CUMM (3.8-5.5); White Blood Count 10.8 T/CUMM (4-12)
[2019-02-14 05:21] LABS: Albumin 1.4 G/DL (3.4-5.0); Bilirubin,Total 0.9 MG/DL (0.2-1.0); Calcium 8.7 MG/DL (8.5-10.1); Osmolality,Calculated 274.7 MOS/KG (273-304); Total Protein 6.9 G/DL (6.4-8.3)
[2019-02-14] MEDS ORDERED: PHENAZOPYRIDINE 95 MG TABLET PO SCH (08:00)
[2019-02-14] MEDS: INSULIN REGULAR 100 UNIT/ML SUBCUT SCH (08:15)
[2019-02-14] MEDS: POLYETHYLENE GLYCOL POWDER 17 GM PACK PO SCH (08:19)
[2019-02-14] MEDS: MENTHOL/ZINC OXIDE OINT 71 GM JAR TOP SCH (08:20)
[2019-02-14 08:44] VITALS: BP 156/58
== END 2019-02-14 09:40 | DRG 71 ==
LOC: EDBD → EDUNIT# → N.ED 18:22 → N.EDINP 21:28 → SUATTDRO 21:28 → N.3E 22:57
PROVIDERS: ADMIT Internal Medicine; ATTEND Internal Medicine Cardiovascular Disease

== ENCOUNTER 2019-03-04 17:46 | Inpatient (IN) ==
[2019-03-04] MEDS ORDERED: SODIUM CHLORIDE 0.9% 1,000 ML IV STA (18:15)
[2019-03-04 18:31] LABS: Basophils # 0.1 10*3/uL (0.0-0.2); Basophils % 0.2 % (0.0-0.8); Hematocrit 37.2 VOL% (35.7-47.0); Hemoglobin 11.3 GM/DL (12.0-16.0); Immature Granulocytes Absolute 0.22 #; Lymphocytes # 1.5 10*3/uL (1.4-4.0); Lymphocytes % 6.9 % (21.3-54.2); Mean Corpuscular HGB Conc 30.4 GM/DL (32-36); Mean Corpuscular Volume 85.3 FL (87-102); Mean Platelet Volume 9.7 FL (9.6-12.0); Monocytes % 7.2 % (1.7-12.7); NRBC # 0.03 10*3/uL; Neutrophils % 84.7 % (38.7-73.9); Platelet Count 437 T/CUMM (130-400); Red Blood Count 4.36 MC/CUMM (3.8-5.5); Red Cell Distribution Width 14.1 % (9.3-17.3); White Blood Count 21.6 T/CUMM (4-12)
[2019-03-04 18:41] LABS: INR 1.5; PT Patient Result 16.6 SECS (9.6-12.2); Partial Thromboplastin Time 24.5 SECS (20.8-36.0)
[2019-03-04] MEDS ORDERED: VANCOMYCIN INJ 1,000 MG in SODIUM CHLORIDE 0.9% 250 ML IV STA (18:44)
[2019-03-04 18:56] LABS: Alanine Aminotransferase 19 U/L (13-56); Albumin 1.8 G/DL (3.4-5.0); Alkaline Phosphatase 251 U/L (45-117); Aspartate Amino Transferase 37 U/L (0-37); Blood Urea Nitrogen 40 MG/DL (7-18); Calcium 8.7 MG/DL (8.5-10.1); Estimated Glom Filtration Rate 48 ML/MIN; Glucose 155 MG/DL (74-106); Osmolality,Calculated 313.7 MOS/KG (273-304); Troponin I < 0.015 NG/ML (0.00-0.045)
[2019-03-04 19:11] LABS: Lymphocytes 4 % (20-55); Segmented Neutrophils 90 % (50-85); Total Cells Counted 100
[2019-03-04 19:12] LABS: Platelet Estimate Adequate
[2019-03-04 19:58] LABS: Apearance,Urine CLEAR (Clear); Bilirubin,Urine Negative (Negative); Blood, Urine Moderate mg/dL (Negative); Glucose,Urine (UA) 50 mg/dL (Negative); Ketones,Urine Negative (Negative); Mucus,Urine Occasional /LPF (Occasional); Nitrite,Urine Positive (Negative); Protein,Urine >=500 MG/DL; RBC,Urine 21 /HPF (0-4); Squamous Epithelial Cell,Urine Occasional /HPF (0-10); Urine Color Amber (Yellow); WBC,Urine 4 /HPF (0-6)
[2019-03-04] MEDS ORDERED: ACETAMINOPHEN 650 MG SUPP RECTAL STA (22:14)
[2019-03-04] MEDS ORDERED: ONDANSETRON 4 MG/2 ML VIAL IV PRN (22:17)
[2019-03-04] MEDS ORDERED: SODIUM CHLORIDE 0.9% 1,000 ML IV SCH (22:17)
[2019-03-04] MEDS ORDERED: GLUCAGON 1 MG VIAL IM PRN (22:30)
[2019-03-04] MEDS ORDERED: DEXTROSE 50% 25 GM/50 ML VIAL IV PRN (22:30)
[2019-03-04] MEDS: cefTRIAXone 1,000 MG in SYRINGE 1 EACH IV SCH (22:53)
[2019-03-04] MEDS ORDERED: INFLUENZA VIRUS VACCINE 0.5 ML SYRINGE IM ONE (23:38)
[2019-03-05 05:23] LABS: Basophils % 0.2 % (0.0-0.8); Hematocrit 33.9 VOL% (35.7-47.0); Hemoglobin 10.3 GM/DL (12.0-16.0); Immature Granulocytes % 0.9 %; Immature Granulocytes Absolute 0.19 #; Lymphocytes # 1.4 10*3/uL (1.4-4.0); Lymphocytes % 6.9 % (21.3-54.2); Mean Corpuscular HGB Conc 30.4 GM/DL (32-36); Mean Platelet Volume 10.1 FL (9.6-12.0); Monocytes % 5.8 % (1.7-12.7); Neutrophils % 86.2 % (38.7-73.9); Platelet Count 377 T/CUMM (130-400); Red Blood Count 3.94 MC/CUMM (3.8-5.5); Red Cell Distribution Width 14.2 % (9.3-17.3); White Blood Count 20.3 T/CUMM (4-12)
[2019-03-05 06:10] LABS: Hypochromasia 2+; Lymphocytes 6 % (20-55); Ovalocytes 1+; Platelet Estimate Normal; Polychromasia 1+; Segmented Neutrophils 88 % (50-85); Target Cells 2+; Total Cells Counted 100
[2019-03-05] MEDS ORDERED: DEXTROSE 50% 25 GM/50 ML VIAL IV PRN (08:09)
[2019-03-05] MEDS ORDERED: GLUCAGON 1 MG VIAL IM PRN (08:09)
[2019-03-05] MEDS: INSULIN REGULAR 100 UNIT/ML SUBCUT SCH ×2 (12:35→18:21)
[2019-03-05] MEDS: SODIUM CHLORIDE 23.4% CONC INJ 38.5 MEQ in STERILE WATER INJ 1,000 ML IV SCH (12:59)
[2019-03-05] MEDS: POLYETHYLENE GLYCOL POWDER 17 GM PACK PO SCH (16:32)
[2019-03-05] MEDS: MELATONIN 3 MG TABLET PO SCH (20:57)
[2019-03-05] MEDS: PHENAZOPYRIDINE 95 MG TABLET PO SCH (20:57)
[2019-03-05] MEDS: risperiDONE 1 MG TABLET PO SCH (20:57)
[2019-03-05] MEDS: ROSUVASTATIN 10 MG TABLET PO SCH (20:57)
[2019-03-05] MEDS: INSULIN GLARGINE 100 UNIT/ML SUBCUT SCH (20:58)
[2019-03-05] MEDS: MENTHOL/ZINC OXIDE OINT 71 GM JAR TOP SCH (20:58)
[2019-03-05] MEDS: cefTRIAXone 1,000 MG in SYRINGE 1 EACH IV SCH (23:42)
[2019-03-06] MEDS: INSULIN REGULAR 100 UNIT/ML SUBCUT SCH ×4 (01:14→18:04)
[2019-03-06] MEDS: SODIUM CHLORIDE 23.4% CONC INJ 38.5 MEQ in STERILE WATER INJ 1,000 ML IV SCH ×2 (03:53→23:28)
[2019-03-06 05:29] LABS: Basophils % 0.2 % (0.0-0.8); Eosinophils % 0.2 % (0.00-10.9); Hematocrit 32.9 VOL% (35.7-47.0); Hemoglobin 9.8 GM/DL (12.0-16.0); Immature Granulocytes Absolute 0.17 #; Lymphocytes # 1.3 10*3/uL (1.4-4.0); Lymphocytes % 7.6 % (21.3-54.2); Mean Corpuscular HGB Conc 29.8 GM/DL (32-36); Mean Corpuscular Volume 86.6 FL (87-102); Mean Platelet Volume 9.9 FL (9.6-12.0); Monocytes % 7.1 % (1.7-12.7); NRBC # 0.14 10*3/uL; Neutrophils % 83.9 % (38.7-73.9); Platelet Count 367 T/CUMM (130-400); Red Cell Distribution Width 14.6 % (9.3-17.3); White Blood Count 17.7 T/CUMM (4-12)
[2019-03-06 05:31] LABS: INR 1.4; PT Patient Result 15.4 SECS (9.6-12.2)
[2019-03-06 06:05] LABS: % Iron Saturation 25.8 % (18-50); Calcium 8.3 MG/DL (8.5-10.1); Ferritin 622.3 ng/ml (8-252); Osmolality,Calculated 329.6 MOS/KG (273-304)
[2019-03-06] MEDS: MENTHOL/ZINC OXIDE OINT 71 GM JAR TOP SCH ×2 (08:50→21:32)
[2019-03-06] MEDS: LACTOBACILLUS RHAMNOSUS GG CAPSULE PO SCH (10:19)
[2019-03-06] MEDS: MULTIVITAMIN (CENTRUM) TABLET PO SCH (10:19)
[2019-03-06] MEDS: PHENAZOPYRIDINE 95 MG TABLET PO SCH ×3 (10:19→21:31)
[2019-03-06] MEDS: POLYETHYLENE GLYCOL POWDER 17 GM PACK PO SCH (10:19)
[2019-03-06 15:22] LABS: Calcium 8.8 MG/DL (8.5-10.1); Osmolality,Calculated 321.2 MOS/KG (273-304)
[2019-03-06] MEDS: risperiDONE 1 MG TABLET PO SCH (21:29)
[2019-03-06] MEDS: MELATONIN 3 MG TABLET PO SCH (21:30)
[2019-03-06] MEDS: INSULIN GLARGINE 100 UNIT/ML SUBCUT SCH (21:31)
[2019-03-06] MEDS: ROSUVASTATIN 10 MG TABLET PO SCH (21:37)
[2019-03-07] MEDS: INSULIN REGULAR 100 UNIT/ML SUBCUT SCH ×5 (00:51→23:46)
[2019-03-07] MEDS: cefTRIAXone 1,000 MG in SYRINGE 1 EACH IV SCH ×2 (00:54→23:47)
[2019-03-07 04:35] LABS: Basophils % 0.2 % (0.0-0.8); Eosinophils # 0.1 10*3/uL (0.0-0.87); Eosinophils % 0.4 % (0.00-10.9); Hematocrit 32.2 VOL% (35.7-47.0); Hemoglobin 9.8 GM/DL (12.0-16.0); Immature Granulocytes % 1.8 %; Immature Granulocytes Absolute 0.26 #; Lymphocytes # 1.2 10*3/uL (1.4-4.0); Lymphocytes % 8.2 % (21.3-54.2); Mean Corpuscular HGB Conc 30.4 GM/DL (32-36); Mean Corpuscular Volume 85.2 FL (87-102); Mean Platelet Volume 10.8 FL (9.6-12.0); Monocytes % 8.8 % (1.7-12.7); NRBC # 0.17 10*3/uL; Neutrophils % 80.6 % (38.7-73.9); Platelet Count 336 T/CUMM (130-400); Red Blood Count 3.78 MC/CUMM (3.8-5.5); Red Cell Distribution Width 14.6 % (9.3-17.3); White Blood Count 14.8 T/CUMM (4-12)
[2019-03-07 05:03] LABS: Calcium 8.4 MG/DL (8.5-10.1); Osmolality,Calculated 311.6 MOS/KG (273-304)
[2019-03-07] MEDS: LACTOBACILLUS RHAMNOSUS GG CAPSULE PO SCH (11:19)
[2019-03-07] MEDS: MULTIVITAMIN (CENTRUM) TABLET PO SCH (11:19)
[2019-03-07] MEDS: PHENAZOPYRIDINE 95 MG TABLET PO SCH ×3 (11:19→21:09)
[2019-03-07] MEDS: POLYETHYLENE GLYCOL POWDER 17 GM PACK PO SCH (11:20)
[2019-03-07] MEDS: MENTHOL/ZINC OXIDE OINT 71 GM JAR TOP SCH ×2 (11:20→21:22)
[2019-03-07] MEDS: SODIUM CHLORIDE 23.4% CONC INJ 38.5 MEQ in STERILE WATER INJ 1,000 ML IV SCH ×2 (14:53→15:04)
[2019-03-07] MEDS: risperiDONE 1 MG TABLET PO SCH (21:09)
[2019-03-07] MEDS: ROSUVASTATIN 10 MG TABLET PO SCH (21:09)
[2019-03-07] MEDS: MELATONIN 3 MG TABLET PO SCH (21:09)
[2019-03-07] MEDS: INSULIN GLARGINE 100 UNIT/ML SUBCUT SCH (21:10)
[2019-03-08] MEDS: SODIUM CHLORIDE 23.4% CONC INJ 38.5 MEQ in STERILE WATER INJ 1,000 ML IV SCH (04:04)
[2019-03-08] MEDS: INSULIN REGULAR 100 UNIT/ML SUBCUT SCH ×3 (06:10→17:52)
[2019-03-08 06:20] LABS: Basophils % 0.3 % (0.0-0.8); Eosinophils # 0.1 10*3/uL (0.0-0.87); Eosinophils % 0.6 % (0.00-10.9); Hematocrit 29.2 VOL% (35.7-47.0); Immature Granulocytes % 2.6 %; Immature Granulocytes Absolute 0.36 #; Lymphocytes # 1.2 10*3/uL (1.4-4.0); Lymphocytes % 8.4 % (21.3-54.2); Mean Corpuscular HGB Conc 30.8 GM/DL (32-36); Mean Corpuscular Volume 84.6 FL (87-102); Mean Platelet Volume 10.9 FL (9.6-12.0); Monocytes % 8.6 % (1.7-12.7); NRBC # 0.07 10*3/uL; Neutrophils % 79.5 % (38.7-73.9); Platelet Count 278 T/CUMM (130-400); Red Blood Count 3.45 MC/CUMM (3.8-5.5); Red Cell Distribution Width 14.6 % (9.3-17.3); White Blood Count 13.6 T/CUMM (4-12)
[2019-03-08 06:50] LABS: Albumin 1.5 G/DL (3.4-5.0); Bilirubin,Total 0.6 MG/DL (0.2-1.0); Calcium 7.7 MG/DL (8.5-10.1); Total Protein 5.9 G/DL (6.4-8.3)
[2019-03-08] MEDS: MULTIVITAMIN (CENTRUM) TABLET PO SCH (08:53)
[2019-03-08] MEDS: PHENAZOPYRIDINE 95 MG TABLET PO SCH ×3 (08:53→21:18)
[2019-03-08] MEDS: DEXTROSE 5% 1,000 ML IV SCH ×2 (08:53→23:03)
[2019-03-08] MEDS: LACTOBACILLUS RHAMNOSUS GG CAPSULE PO SCH (08:53)
[2019-03-08] MEDS: POLYETHYLENE GLYCOL POWDER 17 GM PACK PO SCH (08:53)
[2019-03-08] MEDS: MENTHOL/ZINC OXIDE OINT 71 GM JAR TOP SCH ×2 (09:02→21:18)
[2019-03-08] MEDS: INSULIN GLARGINE 100 UNIT/ML SUBCUT SCH (21:15)
[2019-03-08] MEDS: risperiDONE 1 MG TABLET PO SCH (21:16)
[2019-03-08] MEDS: MELATONIN 3 MG TABLET PO SCH (21:18)
[2019-03-08] MEDS: ROSUVASTATIN 10 MG TABLET PO SCH (21:21)
[2019-03-08] MEDS: cefTRIAXone 1,000 MG in SYRINGE 1 EACH IV SCH (23:04)
[2019-03-09] MEDS: INSULIN REGULAR 100 UNIT/ML SUBCUT SCH ×4 (00:25→18:22)
[2019-03-09 06:52] LABS: Basophils # 0.1 10*3/uL (0.0-0.2); Basophils % 0.3 % (0.0-0.8); Eosinophils % 0.2 % (0.00-10.9); Hematocrit 29.5 VOL% (35.7-47.0); Immature Granulocytes % 3.3 %; Immature Granulocytes Absolute 0.58 #; Lymphocytes # 1.1 10*3/uL (1.4-4.0); Lymphocytes % 6.3 % (21.3-54.2); Mean Corpuscular HGB Conc 30.5 GM/DL (32-36); Mean Corpuscular Volume 84.5 FL (87-102); Mean Platelet Volume 10.8 FL (9.6-12.0); Monocytes % 9.2 % (1.7-12.7); NRBC # 0.03 10*3/uL; Neutrophils % 80.7 % (38.7-73.9); Platelet Count 256 T/CUMM (130-400); Red Blood Count 3.49 MC/CUMM (3.8-5.5); Red Cell Distribution Width 14.5 % (9.3-17.3); White Blood Count 17.6 T/CUMM (4-12)
[2019-03-09 07:07] LABS: Osmolality,Calculated 289.1 MOS/KG (273-304)
[2019-03-09 07:17] LABS: Eosinophils 1 % (0-10); Hypochromasia 1+; Lymphocytes 8 % (20-55); Microcytosis 1+; Myelocytes 1 %; Ovalocytes Slight; Segmented Neutrophils 84 % (50-85); Total Cells Counted 100
[2019-03-09 07:18] LABS: Polychromasia Slight
[2019-03-09] MEDS ORDERED: ETOMIDATE 20 MG/10 ML VIAL IV ONE (09:00)
[2019-03-09] MEDS ORDERED: LIDOCAINE 2% 5 ML VIAL ONE (09:00)
[2019-03-09] MEDS: DEXTROSE 5% 1,000 ML IV SCH (12:38)
[2019-03-09] MEDS ORDERED: KETAMINE 500 MG/10 ML VIAL ONE (13:54)
[2019-03-09] MEDS ORDERED: MIDAZOLAM 2 MG/2 ML VIAL ONE (13:54)
[2019-03-09] MEDS: PHENAZOPYRIDINE 95 MG TABLET PO SCH ×3 (15:30→20:54)
[2019-03-09] MEDS: MENTHOL/ZINC OXIDE OINT 71 GM JAR TOP SCH ×2 (15:31→21:34)
[2019-03-09] MEDS: LACTOBACILLUS RHAMNOSUS GG CAPSULE PO SCH (15:32)
[2019-03-09] MEDS: POLYETHYLENE GLYCOL POWDER 17 GM PACK PO SCH (15:40)
[2019-03-09] MEDS: MULTIVITAMIN (CENTRUM) TABLET PO SCH (15:40)
[2019-03-09] MEDS: DEXTROSE 5% LACTATED RINGERS 1,000 ML IV SCH (17:20)
[2019-03-09] MEDS: LACTATED RINGERS 1,000 ML IV SCH (18:21)
[2019-03-09] MEDS: ALBUTEROL/IPRATROPIUM 3 ML NEB RESP TX SCH (19:48)
[2019-03-09] MEDS: risperiDONE 1 MG TABLET PO SCH (20:54)
[2019-03-09] MEDS: ROSUVASTATIN 10 MG TABLET PO SCH (20:54)
[2019-03-09] MEDS: MELATONIN 3 MG TABLET PO SCH (20:54)
[2019-03-09] MEDS: cefTRIAXone 1,000 MG in SYRINGE 1 EACH IV SCH (20:55)
[2019-03-09] MEDS: INSULIN GLARGINE 100 UNIT/ML SUBCUT SCH (20:55)
[2019-03-10] MEDS: ALBUTEROL/IPRATROPIUM 3 ML NEB RESP TX SCH ×4 (00:22→19:48)
[2019-03-10] MEDS: INSULIN REGULAR 100 UNIT/ML SUBCUT SCH ×4 (00:45→17:08)
[2019-03-10 06:05] LABS: Basophils % 0.2 % (0.0-0.8); Eosinophils % 0.1 % (0.00-10.9); Hematocrit 23.8 VOL% (35.7-47.0); Hemoglobin 7.6 GM/DL (12.0-16.0); Immature Granulocytes % 2.2 %; Immature Granulocytes Absolute 0.36 #; Lymphocytes # 1.1 10*3/uL (1.4-4.0); Lymphocytes % 6.8 % (21.3-54.2); Mean Corpuscular HGB Conc 31.9 GM/DL (32-36); Mean Corpuscular Volume 82.6 FL (87-102); Mean Platelet Volume 11.3 FL (9.6-12.0); Monocytes % 7.6 % (1.7-12.7); Neutrophils % 83.1 % (38.7-73.9); Platelet Count 263 T/CUMM (130-400); Red Blood Count 2.88 MC/CUMM (3.8-5.5); Red Cell Distribution Width 14.5 % (9.3-17.3); White Blood Count 16.2 T/CUMM (4-12)
[2019-03-10 07:09] LABS: Osmolality,Calculated 281.4 MOS/KG (273-304)
[2019-03-10 07:14] LABS: Calcium 7.5 MG/DL (8.5-10.1); Prealbumin 7.1 MG/DL (20-40)
[2019-03-10] MEDS ORDERED: SODIUM CHLORIDE 0.9% 1,000 ML IV PRN (08:55)
[2019-03-10] MEDS ORDERED: POTASSIUM CHLORIDE 20 MEQ TABLET PO ONE (08:57)
[2019-03-10] MEDS: POLYETHYLENE GLYCOL POWDER 17 GM PACK PO SCH (09:50)
[2019-03-10] MEDS: PHENAZOPYRIDINE 95 MG TABLET PO SCH ×3 (09:51→21:10)
[2019-03-10] MEDS: LACTOBACILLUS RHAMNOSUS GG CAPSULE PO SCH (09:51)
[2019-03-10] MEDS: MULTIVITAMIN (CENTRUM) TABLET PO SCH (09:51)
[2019-03-10] MEDS ORDERED: POTASSIUM CHLORIDE 20 MEQ/15 ML UDCUP PEG ONE (10:00)
[2019-03-10] MEDS ORDERED: MAGNESIUM SULF RIDER 2 GM in PREMIX 1 EACH IV ONE (10:00)
[2019-03-10] MEDS: MENTHOL/ZINC OXIDE OINT 71 GM JAR TOP SCH ×2 (10:41→21:32)
[2019-03-10] MEDS: DEXTROSE 5% LACTATED RINGERS 1,000 ML IV SCH (17:09)
[2019-03-10] MEDS: ROSUVASTATIN 10 MG TABLET PO SCH (21:07)
[2019-03-10] MEDS: INSULIN GLARGINE 100 UNIT/ML SUBCUT SCH (21:07)
[2019-03-10] MEDS: risperiDONE 1 MG TABLET PO SCH (21:08)
[2019-03-10] MEDS: MELATONIN 3 MG TABLET PO SCH (21:08)
[2019-03-11] MEDS: INSULIN REGULAR 100 UNIT/ML SUBCUT SCH ×2 (00:43→05:44)
[2019-03-11] MEDS: ALBUTEROL/IPRATROPIUM 3 ML NEB RESP TX SCH (01:05)
[2019-03-11 05:41] VITALS: BP 146/67
== END 2019-03-11 07:30 | disposition hospice, inpatient (51) | DRG 871 ==
LOC: EDUNIT# → EDBD → N.ED 17:46 → N.EDINP 17:46 → N.2E 22:27 → SUATTDRO 03-05 09:22
PROVIDERS: ADMIT Internal Medicine; ATTEND Family Medicine
PROC: EGDWPEG (ICD-10-PCS; 2019-03-09 10:50)

== ENCOUNTER 2019-03-25 05:31 | Inpatient (IN) ==
[2019-03-25] MEDS ORDERED: LACTATED RINGERS 1,000 ML IV ONE (05:58)
[2019-03-25] MEDS ORDERED: ACETAMINOPHEN 500 MG TABLET PO STA (05:58)
[2019-03-25 06:43] LABS: Basophils # 0.1 10*3/uL (0.0-0.2); Basophils % 0.3 % (0.0-0.8); Eosinophils # 0.1 10*3/uL (0.0-0.87); Eosinophils % 0.3 % (0.00-10.9); Hematocrit 24.9 VOL% (35.7-47.0); Hemoglobin 7.8 GM/DL (12.0-16.0); Immature Granulocytes % 1.7 %; Immature Granulocytes Absolute 0.34 #; Mean Corpuscular HGB Conc 31.3 GM/DL (32-36); Mean Corpuscular Volume 81.6 FL (87-102); Mean Platelet Volume 9.2 FL (9.6-12.0); Monocytes % 7.7 % (1.7-12.7); Platelet Count 448 T/CUMM (130-400); Red Blood Count 3.05 MC/CUMM (3.8-5.5); White Blood Count 19.9 T/CUMM (4-12)
[2019-03-25 06:54] LABS: INR 1.1; PT Patient Result 11.6 SECS (9.6-12.2); Partial Thromboplastin Time 28.2 SECS (20.8-36.0)
[2019-03-25 07:10] LABS: Alanine Aminotransferase 18 U/L (13-56); Albumin 1.5 G/DL (3.4-5.0); Alkaline Phosphatase 221 U/L (45-117); Aspartate Amino Transferase 17 U/L (0-37); Bilirubin,Total < 0.39 MG/DL (0.2-1.0); Blood Urea Nitrogen 18 MG/DL (7-18); Calcium 8.7 MG/DL (8.5-10.1); Estimated Glom Filtration Rate 96 ML/MIN; Glucose 354 MG/DL (74-106); Osmolality,Calculated 290.7 MOS/KG (273-304); Total Protein 6.9 G/DL (6.4-8.3)
[2019-03-25] MEDS ORDERED: PIPERACILLIN/TAZOBACTAM 4,500 MG in SODIUM CHLORIDE 0.9% 100 ML IV STA (07:40)
[2019-03-25] MEDS ORDERED: VANCOMYCIN INJ 1,000 MG in SODIUM CHLORIDE 0.9% 250 ML IV STA (07:40)
[2019-03-25] MEDS ORDERED: VANCOMYCIN 1,000 MG VIAL ONE (07:58)
[2019-03-25 08:28] LABS: Apearance,Urine CLEAR (Clear); Bilirubin,Urine Negative (Negative); Blood, Urine Small mg/dL (Negative); Glucose,Urine (UA) >=500 mg/dL (Negative); Ketones,Urine 5 mg/dL (Negative); Nitrite,Urine Negative (Negative); Protein,Urine 30 MG/DL; RBC,Urine 8 /HPF (0-4); Squamous Epithelial Cell,Urine Occasional /HPF (0-10); Urine Color Yellow (Yellow); Urine Specific Gravity 1.022 (1.001-1.035); Urine Urobilinogen < 2.0 EU/DL (0.2-1.0); WBC,Urine 30 /HPF (0-6)
[2019-03-25] MEDS ORDERED: GLUCAGON 1 MG VIAL IM PRN (09:51)
[2019-03-25] MEDS ORDERED: DEXTROSE 50% 25 GM/50 ML VIAL IV PRN (09:51)
[2019-03-25] MEDS ORDERED: ONDANSETRON 4 MG/2 ML VIAL IV PRN (09:51)
[2019-03-25 10:18] LABS: Risk Ratio 2.12; Thyroid Stimulating Hormone 1.89 uIU/ml (0.358-3.74); VLDL CHOLESTEROL 10.6 MG/DL
[2019-03-25] MEDS: ENOXAPARIN 40 MG/0.4 ML SYRINGE SUBCUT SCH (10:26)
[2019-03-25] MEDS: SODIUM CHLORIDE 0.9% 1,000 ML IV SCH (11:08)
[2019-03-25] MEDS: ALBUTEROL/IPRATROPIUM 3 ML NEB RESP TX SCH ×2 (12:21→20:00)
[2019-03-25] MEDS: INSULIN LISPRO 100 UNIT/ML SUBCUT SCH ×3 (12:35→21:32)
[2019-03-25] MEDS: PIPERACILLIN/TAZOBACTAM 3,375 MG in SODIUM CHLORIDE 0.9% 100 ML IV SCH (16:06)
[2019-03-25] MEDS: ACETAMINOPHEN 325 MG TABLET PO PRN (16:45)
[2019-03-25] MEDS ORDERED: METHENAMINE HIPPURATE 1 GM TABLET PEG SCH (21:00)
[2019-03-25] MEDS: ROSUVASTATIN 10 MG TABLET PEG SCH (21:32)
[2019-03-25] MEDS: risperiDONE 1 MG TABLET PEG SCH (21:32)
[2019-03-26] MEDS: ALBUTEROL/IPRATROPIUM 3 ML NEB RESP TX SCH ×4 (01:05→19:12)
[2019-03-26] MEDS: PIPERACILLIN/TAZOBACTAM 3,375 MG in SODIUM CHLORIDE 0.9% 100 ML IV SCH ×2 (01:06→08:35)
[2019-03-26 05:35] LABS: Hematocrit 24.9 VOL% (35.7-47.0); Hemoglobin 7.7 GM/DL (12.0-16.0); Mean Corpuscular Volume 82.2 FL (87-102); Red Blood Count 3.03 MC/CUMM (3.8-5.5); White Blood Count 17.7 T/CUMM (4-12)
[2019-03-26 05:36] LABS: Basophils # 0.1 10*3/uL (0.0-0.2); Basophils % 0.3 % (0.0-0.8); Eosinophils % 0.2 % (0.00-10.9); Immature Granulocytes % 1.8 %; Immature Granulocytes Absolute 0.32 #; Lymphocytes % 5.5 % (21.3-54.2); Mean Corpuscular HGB Conc 30.9 GM/DL (32-36); Mean Platelet Volume 9.6 FL (9.6-12.0); Monocytes % 9.1 % (1.7-12.7); NRBC # 0.02 10*3/uL; Neutrophils % 83.1 % (38.7-73.9); Platelet Count 489 T/CUMM (130-400); Red Cell Distribution Width 17.3 % (9.3-17.3)
[2019-03-26] MEDS: ACETAMINOPHEN 325 MG TABLET PO PRN ×2 (05:59→15:55)
[2019-03-26 06:07] LABS: Calcium 8.4 MG/DL (8.5-10.1); Osmolality,Calculated 295.4 MOS/KG (273-304)
[2019-03-26] MEDS: INSULIN LISPRO 100 UNIT/ML SUBCUT SCH ×4 (08:28→21:13)
[2019-03-26] MEDS: PANTOPRAZOLE 40 MG TABLET PO SCH (08:28)
[2019-03-26] MEDS: LACTOBACILLUS RHAMNOSUS GG CAPSULE PEG SCH (08:28)
[2019-03-26] MEDS: POLYETHYLENE GLYCOL POWDER 17 GM PACK PO SCH (08:29)
[2019-03-26] MEDS: ENOXAPARIN 40 MG/0.4 ML SYRINGE SUBCUT SCH (10:37)
[2019-03-26] MEDS: SODIUM CHLORIDE 0.9% 1,000 ML IV SCH (10:37)
[2019-03-26] MEDS: AMPICILLIN INJ 1,000 MG in SODIUM CHLORIDE 0.9% 100 ML IV SCH (17:30)
[2019-03-26] MEDS: risperiDONE 1 MG TABLET PEG SCH (21:04)
[2019-03-26] MEDS: ROSUVASTATIN 10 MG TABLET PEG SCH (21:04)
[2019-03-26] MEDS: INSULIN GLARGINE 100 UNIT/ML SUBCUT SCH (21:09)
[2019-03-27] MEDS: ALBUTEROL/IPRATROPIUM 3 ML NEB RESP TX SCH ×2 (00:21→07:40)
[2019-03-27] MEDS: AMPICILLIN INJ 1,000 MG in SODIUM CHLORIDE 0.9% 100 ML IV SCH ×4 (00:39→22:36)
[2019-03-27] MEDS: SODIUM CHLORIDE 0.9% 1,000 ML IV SCH ×2 (03:00→16:54)
[2019-03-27 05:13] LABS: Basophils % 0.2 % (0.0-0.8); Eosinophils % 0.1 % (0.00-10.9); Hematocrit 23.3 VOL% (35.7-47.0); Hemoglobin 7.1 GM/DL (12.0-16.0); Immature Granulocytes % 2.8 %; Immature Granulocytes Absolute 0.48 #; Lymphocytes # 1.3 10*3/uL (1.4-4.0); Lymphocytes % 7.3 % (21.3-54.2); Mean Corpuscular HGB Conc 30.5 GM/DL (32-36); Mean Corpuscular Volume 82.6 FL (87-102); Mean Platelet Volume 9.2 FL (9.6-12.0); Monocytes % 10.8 % (1.7-12.7); NRBC # 0.02 10*3/uL; Neutrophils % 78.8 % (38.7-73.9); Platelet Count 451 T/CUMM (130-400); Red Blood Count 2.82 MC/CUMM (3.8-5.5); Red Cell Distribution Width 17.2 % (9.3-17.3); White Blood Count 17.3 T/CUMM (4-12)
[2019-03-27 05:38] LABS: Calcium 8.4 MG/DL (8.5-10.1)
[2019-03-27] MEDS: ENOXAPARIN 40 MG/0.4 ML SYRINGE SUBCUT SCH (10:27)
[2019-03-27] MEDS: PANTOPRAZOLE 40 MG TABLET PO SCH (10:27)
[2019-03-27] MEDS: LACTOBACILLUS RHAMNOSUS GG CAPSULE PEG SCH (10:27)
[2019-03-27] MEDS: INSULIN LISPRO 100 UNIT/ML SUBCUT SCH ×4 (10:28→22:38)
[2019-03-27] MEDS: POLYETHYLENE GLYCOL POWDER 17 GM PACK PO SCH (10:28)
[2019-03-27] MEDS: LEVALBUTEROL 0.31 MG/3 ML NEB RESP TX SCH ×2 (13:18→19:39)
[2019-03-27] MEDS: risperiDONE 1 MG TABLET PEG SCH (22:38)
[2019-03-27] MEDS: ROSUVASTATIN 10 MG TABLET PEG SCH (22:38)
[2019-03-27] MEDS: INSULIN GLARGINE 100 UNIT/ML SUBCUT SCH (22:39)
[2019-03-28] MEDS: LEVALBUTEROL 0.31 MG/3 ML NEB RESP TX SCH ×4 (00:57→19:51)
[2019-03-28] MEDS: AMPICILLIN INJ 1,000 MG in SODIUM CHLORIDE 0.9% 100 ML IV SCH ×4 (02:31→22:41)
[2019-03-28 06:36] LABS: Basophils % 0.2 % (0.0-0.8); Eosinophils # 0.1 10*3/uL (0.0-0.87); Eosinophils % 0.5 % (0.00-10.9); Hematocrit 21.9 VOL% (35.7-47.0); Hemoglobin 6.8 GM/DL (12.0-16.0); Immature Granulocytes % 2.7 %; Immature Granulocytes Absolute 0.46 #; Lymphocytes # 1.7 10*3/uL (1.4-4.0); Lymphocytes % 10.2 % (21.3-54.2); Mean Corpuscular HGB Conc 31.1 GM/DL (32-36); Mean Corpuscular Volume 81.7 FL (87-102); Mean Platelet Volume 9.4 FL (9.6-12.0); Monocytes % 10.4 % (1.7-12.7); NRBC # 0.02 10*3/uL; Platelet Count 455 T/CUMM (130-400); Red Blood Count 2.68 MC/CUMM (3.8-5.5); Red Cell Distribution Width 17.4 % (9.3-17.3); White Blood Count 16.8 T/CUMM (4-12)
[2019-03-28 06:57] LABS: Osmolality,Calculated 289.8 MOS/KG (273-304)
[2019-03-28] MEDS: ENOXAPARIN 40 MG/0.4 ML SYRINGE SUBCUT SCH (09:31)
[2019-03-28] MEDS: POLYETHYLENE GLYCOL POWDER 17 GM PACK PO SCH (09:31)
[2019-03-28] MEDS: SODIUM CHLORIDE 0.9% 1,000 ML IV SCH ×2 (09:32→22:41)
[2019-03-28] MEDS: PANTOPRAZOLE 40 MG TABLET PO SCH (09:32)
[2019-03-28] MEDS: INSULIN LISPRO 100 UNIT/ML SUBCUT SCH ×4 (09:32→22:42)
[2019-03-28] MEDS: LACTOBACILLUS RHAMNOSUS GG CAPSULE PEG SCH (09:32)
[2019-03-28] MEDS: risperiDONE 1 MG TABLET PEG SCH (22:41)
[2019-03-28] MEDS: ROSUVASTATIN 10 MG TABLET PEG SCH (22:41)
[2019-03-28] MEDS: INSULIN GLARGINE 100 UNIT/ML SUBCUT SCH (22:43)
[2019-03-29] MEDS: LEVALBUTEROL 0.31 MG/3 ML NEB RESP TX SCH ×4 (00:01→19:50)
[2019-03-29] MEDS: AMPICILLIN INJ 1,000 MG in SODIUM CHLORIDE 0.9% 100 ML IV SCH ×2 (03:19→09:33)
[2019-03-29 09:20] LABS: Basophils % 0.3 % (0.0-0.8); Eosinophils # 0.1 10*3/uL (0.0-0.87); Eosinophils % 0.7 % (0.00-10.9); Hematocrit 24.2 VOL% (35.7-47.0); Hemoglobin 7.4 GM/DL (12.0-16.0); Immature Granulocytes % 4.6 %; Immature Granulocytes Absolute 0.72 #; Lymphocytes # 1.4 10*3/uL (1.4-4.0); Mean Corpuscular HGB Conc 30.6 GM/DL (32-36); Mean Platelet Volume 9.2 FL (9.6-12.0); Monocytes % 9.1 % (1.7-12.7); Neutrophils % 76.3 % (38.7-73.9); Platelet Count 494 T/CUMM (130-400); Red Blood Count 2.95 MC/CUMM (3.8-5.5); Red Cell Distribution Width 17.2 % (9.3-17.3); White Blood Count 15.6 T/CUMM (4-12)
[2019-03-29] MEDS: POLYETHYLENE GLYCOL POWDER 17 GM PACK PO SCH (09:32)
[2019-03-29] MEDS: ENOXAPARIN 40 MG/0.4 ML SYRINGE SUBCUT SCH (09:32)
[2019-03-29] MEDS: LACTOBACILLUS RHAMNOSUS GG CAPSULE PEG SCH (09:33)
[2019-03-29] MEDS: INSULIN LISPRO 100 UNIT/ML SUBCUT SCH ×4 (09:33→20:54)
[2019-03-29] MEDS: PANTOPRAZOLE 40 MG TABLET PO SCH (09:33)
[2019-03-29 09:40] LABS: Eosinophils 1 % (0-10); Lymphocytes 4 % (20-55); Segmented Neutrophils 83 % (50-85); Total Cells Counted 100
[2019-03-29 09:41] LABS: Hypochromasia 1+; Platelet Estimate Adequate
[2019-03-29] MEDS: SODIUM CHLORIDE 0.9% 1,000 ML IV SCH ×2 (11:24→23:40)
[2019-03-29] MEDS: VANCOMYCIN INJ 1,000 MG in SODIUM CHLORIDE 0.9% 250 ML IV SCH ×2 (12:33→23:37)
[2019-03-29] MEDS: ROSUVASTATIN 10 MG TABLET PEG SCH (20:54)
[2019-03-29] MEDS: risperiDONE 1 MG TABLET PEG SCH (20:54)
[2019-03-29] MEDS: INSULIN GLARGINE 100 UNIT/ML SUBCUT SCH (20:55)
[2019-03-30] MEDS: LEVALBUTEROL 0.31 MG/3 ML NEB RESP TX SCH ×4 (01:19→20:09)
[2019-03-30 04:54] LABS: Basophils % 0.2 % (0.0-0.8); Eosinophils # 0.1 10*3/uL (0.0-0.87); Eosinophils % 0.7 % (0.00-10.9); Hematocrit 23.8 VOL% (35.7-47.0); Hemoglobin 7.4 GM/DL (12.0-16.0); Immature Granulocytes % 5.5 %; Immature Granulocytes Absolute 0.85 #; Lymphocytes # 1.1 10*3/uL (1.4-4.0); Lymphocytes % 7.1 % (21.3-54.2); Mean Corpuscular HGB Conc 31.1 GM/DL (32-36); Mean Platelet Volume 9.3 FL (9.6-12.0); Monocytes % 8.6 % (1.7-12.7); NRBC # 0.02 10*3/uL; Neutrophils % 77.9 % (38.7-73.9); Platelet Count 558 T/CUMM (130-400); Red Blood Count 2.94 MC/CUMM (3.8-5.5); White Blood Count 15.3 T/CUMM (4-12)
[2019-03-30 05:13] LABS: Calcium 7.9 MG/DL (8.5-10.1); Osmolality,Calculated 280.7 MOS/KG (273-304)
[2019-03-30 05:26] LABS: Hypochromasia 1+; Lymphocytes 8 % (20-55); Microcytosis 1+; Platelet Estimate Increased; Polychromasia Few; Segmented Neutrophils 88 % (50-85); Total Cells Counted 100
[2019-03-30] MEDS: PANTOPRAZOLE 40 MG TABLET PO SCH (10:04)
[2019-03-30] MEDS: LACTOBACILLUS RHAMNOSUS GG CAPSULE PEG SCH (10:04)
[2019-03-30] MEDS: INSULIN LISPRO 100 UNIT/ML SUBCUT SCH ×4 (10:04→18:53)
[2019-03-30] MEDS: ENOXAPARIN 40 MG/0.4 ML SYRINGE SUBCUT SCH (10:05)
[2019-03-30] MEDS: POLYETHYLENE GLYCOL POWDER 17 GM PACK PO SCH (10:05)
[2019-03-30] MEDS: SODIUM CHLORIDE 0.9% 1,000 ML IV SCH (10:05)
[2019-03-30] MEDS ORDERED: TUBERCULIN SKIN TEST 0.1 ML SYRINGE INTRADERM ONE (12:30)
[2019-03-30] MEDS: VANCOMYCIN INJ 1,000 MG in SODIUM CHLORIDE 0.9% 250 ML IV SCH ×2 (12:42→22:28)
[2019-03-30] MEDS ORDERED: INSULIN GLARGINE 100 UNIT/ML SUBCUT SCH (21:00)
[2019-03-30] MEDS: risperiDONE 1 MG TABLET PEG SCH (21:50)
[2019-03-30] MEDS: ROSUVASTATIN 10 MG TABLET PEG SCH (21:51)
[2019-03-30] MEDS: ZINC OXIDE PASTE 113 GM TUBE TOP SCH (22:01)
[2019-03-31] MEDS: LEVALBUTEROL 0.31 MG/3 ML NEB RESP TX SCH ×2 (00:43→07:46)
[2019-03-31] MEDS: INSULIN LISPRO 100 UNIT/ML SUBCUT SCH ×3 (01:14→11:48)
[2019-03-31 05:38] LABS: Basophils # 0.1 10*3/uL (0.0-0.2); Basophils % 0.3 % (0.0-0.8); Eosinophils # 0.1 10*3/uL (0.0-0.87); Eosinophils % 0.8 % (0.00-10.9); Hematocrit 23.1 VOL% (35.7-47.0); Hemoglobin 7.3 GM/DL (12.0-16.0); Immature Granulocytes % 5.2 %; Immature Granulocytes Absolute 0.82 #; Lymphocytes # 1.3 10*3/uL (1.4-4.0); Lymphocytes % 8.3 % (21.3-54.2); Mean Corpuscular HGB Conc 31.6 GM/DL (32-36); Mean Corpuscular Volume 81.1 FL (87-102); Mean Platelet Volume 9.6 FL (9.6-12.0); Monocytes % 8.9 % (1.7-12.7); Neutrophils % 76.5 % (38.7-73.9); Platelet Count 587 T/CUMM (130-400); Red Blood Count 2.85 MC/CUMM (3.8-5.5); Red Cell Distribution Width 17.1 % (9.3-17.3); White Blood Count 15.8 T/CUMM (4-12)
[2019-03-31 05:59] LABS: % Iron Saturation 13.2 % (18-50); Ferritin 412.1 ng/ml (8-252)
[2019-03-31 06:07] LABS: Band Neutrophils 2 % (0-10); Eosinophils 2 % (0-10); Hypochromasia 1+; Lymphocytes 7 % (20-55); Ovalocytes Slight; Platelet Estimate Adequate; Segmented Neutrophils 81 % (50-85); Total Cells Counted 100
[2019-03-31 06:08] LABS: Microcytosis 1+
[2019-03-31] MEDS: POLYETHYLENE GLYCOL POWDER 17 GM PACK PO SCH (09:43)
[2019-03-31] MEDS: PANTOPRAZOLE 40 MG TABLET PO SCH (09:43)
[2019-03-31] MEDS: ZINC OXIDE PASTE 113 GM TUBE TOP SCH (09:43)
[2019-03-31] MEDS: LACTOBACILLUS RHAMNOSUS GG CAPSULE PEG SCH (09:43)
[2019-03-31] MEDS: ENOXAPARIN 40 MG/0.4 ML SYRINGE SUBCUT SCH (09:43)
[2019-03-31 11:39] VITALS: BP 153/64
[2019-03-31] MEDS: VANCOMYCIN INJ 1,000 MG in SODIUM CHLORIDE 0.9% 250 ML IV SCH (11:49)
== END 2019-03-31 14:45 | DRG 689 ==
LOC: EDUNIT# → EDBD → N.ED 05:31 → SUATTDRO 09:28 → N.EDINP 09:28 → N.2E 09:46
PROVIDERS: ADMIT Internal Medicine; ATTEND Internal Medicine